=== PATIENT | male | born 1960 | race Caucasian/White ===

== ENCOUNTER 2022-03-15 10:20 | Inpatient (IN) | payer MEDICAID, OTHER ==
[~2022-03-15] VITALS: Ht 180.3 cm; Wt 126.6 kg
[2022-03-15 11:44] LABS: Basophils # (auto) 0.1 10 ^3/uL (0-0.2); Basophils % (auto) 1.2 % (0.0-2.0); Eosinophils # (auto) 0.1 10 ^3/uL (0-0.8); Hematocrit 40.9 % (41.0-53.0); Hemoglobin 13.6 g/dL (13.5-17.5); Lymphocytes % (auto) 32.1 % (10.0-50.0); Mean Corpuscular Hemoglobin 31.8 pg (28.0-32.0); Mean Corpuscular Hgb Conc. 33.3 g/dL (32.0-36.0); Mean Corpuscular Volume 95.6 fL (80.0-100.0); Monocytes # (auto) 0.5 10 ^3/uL (0-1.3); Monocytes % (auto) 7.4 % (0.0-12.0); Neutrophils # (auto) 3.6 10 ^3/uL (1.6-8.6); Neutrophils % (auto) 58.3 % (37.0-80.0); Red Blood Cells 4.28 10^6/uL (4.5-5.90); White Blood Cell 6.2 10^3/uL (4.4-10.8)
[2022-03-15 12:01] LABS: Calcium 8.8 mg/dL (8.5-10.1); Potassium 3.8 mmol/L (3.5-5.1)
[2022-03-15 12:05] LABS: Albumin 3.7 g/dL (3.4-5.0); BUN/Creatinine Ratio 17.6
[2022-03-15 12:08] LABS: Bilirubin, Total 1.2 mg/dL (0.2-1.0)
[2022-03-15] MEDS ORDERED: ACETAMINOPHEN 325 MG TAB PO PRN (14:15)
[2022-03-15] MEDS ORDERED: HYDROcodone-ACET 5/325MG TAB PO PRN (14:15)
[2022-03-15] MEDS ORDERED: NITROGLYCERIN 0.4 MG SL TAB SL PRN (14:15)
[2022-03-15] MEDS ORDERED: ONDANSETRON HCL 4 MG/2 ML VIAL IV PRN (14:15)
[2022-03-15] MEDS ORDERED: MORPHINE SULFATE INJECTION 2 MG/ML SYRG IV PRN ×2 (14:15)
[2022-03-15 16:50] LABS: Urine Bacteria NONE SEEN /hpf (None Seen); Urine Blood Negative /uL (Negative); Urine Specific Gravity 1.012 (1.001-1.035); Urine WBC <1 /hpf (0 - 3)
[2022-03-15] MEDS ORDERED: RIVAROXABAN 20 MG TAB PO SCH (20:30)
[2022-03-15 21:10] VITALS: BP 107/71
[2022-03-15 22:32] VITALS: BP 107/71
[2022-03-15] MEDS ORDERED: LISI40TA11 PO (22:53)
[2022-03-15] MEDS ORDERED: LOVA40TA72 PO (22:53)
[2022-03-15] MEDS ORDERED: ALLO300T2 PO (22:53)
[2022-03-16 05:27] VITALS: BP 94/59
[2022-03-16 08:53] LABS: Basophils # (auto) 0 10 ^3/uL (0-0.2); Basophils % (auto) 0.7 % (0.0-2.0); Eosinophils # (auto) 0.1 10 ^3/uL (0-0.8); Eosinophils % (auto) 1.3 % (0.0-7.0); Hematocrit 42.9 % (41.0-53.0); Hemoglobin 14.6 g/dL (13.5-17.5); Lymphocytes # (auto) 2.1 10 ^3/uL (0.4-5.4); Mean Corpuscular Hemoglobin 32.6 pg (28.0-32.0); Mean Corpuscular Hgb Conc. 34.1 g/dL (32.0-36.0); Mean Corpuscular Volume 95.8 fL (80.0-100.0); Monocytes # (auto) 0.4 10 ^3/uL (0-1.3); Monocytes % (auto) 5.7 % (0.0-12.0); Neutrophils % (auto) 60.3 % (37.0-80.0); Nucleated Red Blood Cells % 0.3 %; Red Blood Cells 4.48 10^6/uL (4.5-5.90); Red Cell Distribution Width 14.4 % (11.8-14.3); White Blood Cell 6.5 10^3/uL (4.4-10.8)
[2022-03-16 09:00] VITALS: BP 94/49
[2022-03-16 09:12] LABS: Albumin 3.8 g/dL (3.4-5.0); Calcium 9.1 mg/dL (8.5-10.1); Potassium 4.6 mmol/L (3.5-5.1)
[2022-03-16 09:17] LABS: Bilirubin, Total 1.2 mg/dL (0.2-1.0); Total Protein 7.5 g/dL (6.4-8.2)
[2022-03-16] MEDS ORDERED: ENOXAPARIN SOD 40 MG/0.4 ML SYRINGE SC SCH (10:00)
[2022-03-16 12:45] VITALS: BP 92/56
[2022-03-16] MEDS ORDERED: RIV20T PO (13:23)
== END 2022-03-16 15:40 | disposition home or self-care (01) | DRG 201 ==
LOC: ER 10:20 → TELE 14:04 → TELE-CENTR 21:15
PROVIDERS: ADMIT Internal Medicine; ATTEND Internal Medicine
DX: I48.0 Paroxysmal atrial fibrillation (principal); E66.01 Morbid (severe) obesity due to excess calories; I10 Essential (primary) hypertension; Z20.822 Contact with and (suspected) exposure to COVID-19; Z68.38 Body mass index [BMI] 38.0-38.9, adult
CPT/HCPCS: 36415; 71045; 80053; 81001; 83880; 84484; 85025; 85379; 93005; 93306; G0378

== ENCOUNTER → 2022-05-17 | Outpatient (CLI) | payer MEDICAID ==
[~2022-05-17] MED LIST: ALLO300T2 PO; LISI40TA11 PO; LOVA40TA72 PO; RIV20T PO
== END | disposition home or self-care (01) ==
LOC: Rad HDHVI 10:01
PROVIDERS: ATTEND Internal Medicine Cardiovascular Disease
DX: I63.9 Cerebral infarction, unspecified (principal)
CPT/HCPCS: 70450

== ENCOUNTER → 2022-06-07 | Outpatient (CLI) | payer MEDICAID ==
[~2022-06-07] VITALS: Ht 180.3 cm; Wt 117.9 kg
[~2022-06-07] MED LIST changes: +ADENOSINE 90 MG/30 ML INJ IV ONE; +ADENOSINE 99 MG in GIVE UN-DILUTED 0 ML IV ONE
== END | disposition home or self-care (01) ==
LOC: Rad HDHVI 06-06 13:37
PROVIDERS: ATTEND Internal Medicine Cardiovascular Disease
DX: I48.91 Unspecified atrial fibrillation (principal); I10 Essential (primary) hypertension; E78.5 Hyperlipidemia, unspecified
CPT/HCPCS: 78452; 93005; 96374; 96375; A9500; J0153

== ENCOUNTER → 2022-09-12 | Outpatient (CLI) | payer MEDICAID ==
[~2022-09-12] MED LIST changes: -ADENOSINE 90 MG/30 ML INJ IV ONE; -ADENOSINE 99 MG in GIVE UN-DILUTED 0 ML IV ONE; +ASPI325T4 PO; +CARB1TAB44 PO; +METO-6 PO; +MULT-1018 PO; +TICA90TA PO
[2022-09-12 11:26] VITALS: BP 95/52
[2022-09-12 11:57] VITALS: BP 104/59
[2022-09-12 16:42] LABS: Basophils # (auto) 0.1 10 ^3/uL (0-0.2); Basophils % (auto) 1.1 % (0.0-2.0); Eosinophils # (auto) 0.1 10 ^3/uL (0-0.8); Eosinophils % (auto) 1.8 % (0.0-7.0); Hematocrit 43.4 % (41.0-53.0); Lymphocytes # (auto) 1.9 10 ^3/uL (0.4-5.4); Lymphocytes % (auto) 35.7 % (10.0-50.0); Mean Corpuscular Hgb Conc. 32.3 g/dL (32.0-36.0); Monocytes # (auto) 0.3 10 ^3/uL (0-1.3); Monocytes % (auto) 6.4 % (0.0-12.0); Neutrophils # (auto) 2.9 10 ^3/uL (1.6-8.6); Nucleated Red Blood Cells % 0.3 %; Red Blood Cells 4.52 10^6/uL (4.5-5.90); Red Cell Distribution Width 14.3 % (11.8-14.3); White Blood Cell 5.2 10^3/uL (4.4-10.8)
[2022-09-12 16:50] LABS: BUN/Creatinine Ratio 13.5; Calcium 9.1 mg/dL (8.5-10.1); Potassium 3.9 mmol/L (3.5-5.1)
[2022-09-12 17:01] LABS: INR 1.25 (0.9-1.15)
[2022-09-15] VITALS (8 sets, daily range): BP systolic 108–129; BP diastolic 70–86
== END | disposition home or self-care (01) ==
LOC: Rad HDHVI 11:10
PROVIDERS: ATTEND Internal Medicine Cardiovascular Disease
DX: Z01.818 Encounter for other preprocedural examination (principal); R94.31 Abnormal electrocardiogram [ECG] [EKG]; I48.0 Paroxysmal atrial fibrillation; R06.02 Shortness of breath
CPT/HCPCS: 36415; 71046; 80048; 85025; 85610; 85730; 93005; G0463

== ENCOUNTER 2022-09-15 07:14 | Day surgery (SDC) | payer MEDICAID ==
[~2022-09-15] VITALS: Ht 180.3 cm; Wt 113.4 kg
[~2022-09-15 07:14] MED LIST changes: -LISI40TA11 PO; -TICA90TA PO
[2022-09-15] MEDS ORDERED: IOHEXOL 350 MG/ML 100ML IJ ONE ×2 (07:23→10:57)
[2022-09-15] MEDS ORDERED: ANGIOMAX 250 MG VIAL IV ONE (10:25)
[2022-09-15] MEDS ORDERED: MIDAZOLAM HCL 2MG/2ML 2ml VIAL (1mg/ml) ONE (10:26)
[2022-09-15] MEDS ORDERED: fentaNYL CITRATE 100 MCG/2 ML VL ONE (10:26)
[2022-09-15] MEDS ORDERED: SODIUM CHL 0.9% 50 ML ONE (10:26)
[2022-09-15] MEDS ORDERED: ATROPINE SULF 1 MG/10ml SYR ONE (10:57)
[2022-09-15] MEDS ORDERED: TICAGRELOR 90 MG TAB ONE ×2 (11:03→11:08)
[2022-09-15] MEDS ORDERED: TICA90TA PO (13:12)
== END 2022-09-15 14:57 | disposition home or self-care (01) ==
LOC: CATH 07:14
PROVIDERS: ATTEND Internal Medicine Cardiovascular Disease
DX: I25.110 Atherosclerotic heart disease of native coronary artery with unstable angina pectoris (principal); I10 Essential (primary) hypertension; I48.91 Unspecified atrial fibrillation; E78.5 Hyperlipidemia, unspecified; E11.40 Type 2 diabetes mellitus with diabetic neuropathy, unspecified; Z79.899 Other long term (current) drug therapy; E11.21 Type 2 diabetes mellitus with diabetic nephropathy; Z79.84 Long term (current) use of oral hypoglycemic drugs; Z20.822 Contact with and (suspected) exposure to COVID-19
CPT/HCPCS: 93458; C1724; C1769; C1874; C1887; C1894; C9602; J0583; J1644; J2250; J3010; J7030; Q9967; U0003; 99152; 99153

== ENCOUNTER → 2022-10-25 | Outpatient (CLI) | payer MEDICAID ==
[~2022-10-25] MED LIST changes: +TICA90TA PO
== END | disposition home or self-care (01) ==
LOC: Rad HDHVI 10:12
PROVIDERS: ATTEND Internal Medicine Cardiovascular Disease
DX: I08.1 Rheumatic disorders of both mitral and tricuspid valves (principal); I10 Essential (primary) hypertension; R06.02 Shortness of breath
CPT/HCPCS: 93306

== ENCOUNTER → 2022-10-27 | Outpatient (CLI) | payer MEDICAID ==
[~2022-10-27] VITALS: Ht 180.3 cm; Wt 113.4 kg
[~2022-10-27] MED LIST changes: +ADENOSINE 90 MG/30 ML INJ IV ONE; +ADENOSINE 95 MG in GIVE UN-DILUTED 0 ML IV ONE
== END | disposition home or self-care (01) ==
LOC: Rad HDHVI 09:31
PROVIDERS: ATTEND Internal Medicine Cardiovascular Disease
DX: I25.10 Atherosclerotic heart disease of native coronary artery without angina pectoris (principal); R06.02 Shortness of breath; I10 Essential (primary) hypertension; E78.5 Hyperlipidemia, unspecified; I48.91 Unspecified atrial fibrillation; I21.4 Non-ST elevation (NSTEMI) myocardial infarction; Z79.899 Other long term (current) drug therapy; Z79.82 Long term (current) use of aspirin
CPT/HCPCS: 78452; 93005; 96374; 96375; A9500; J0153

== ENCOUNTER → 2023-09-04 | Outpatient (CLI) | payer MEDICAID ==
[~2023-09-04] VITALS: Ht 177.8 cm; Wt 108.9 kg
[~2023-09-04] MED LIST changes: +ADENOSINE 91 MG in GIVE UN-DILUTED 0 ML IV ONE; -ADENOSINE 95 MG in GIVE UN-DILUTED 0 ML IV ONE
== END | disposition home or self-care (01) ==
LOC: Rad HDHVI 12:50
PROVIDERS: ATTEND Internal Medicine Cardiovascular Disease
DX: R06.02 Shortness of breath (principal); R07.89 Other chest pain; I25.119 Atherosclerotic heart disease of native coronary artery with unspecified angina pectoris; I10 Essential (primary) hypertension; I48.0 Paroxysmal atrial fibrillation; E78.00 Pure hypercholesterolemia, unspecified
CPT/HCPCS: 78452; 93005; 93306; 96374; 96375; A9500; J0153

== ENCOUNTER → 2023-10-25 | Outpatient (CLI) | payer MEDICAID ==
[~2023-10-25] MED LIST changes: -ADENOSINE 90 MG/30 ML INJ IV ONE; -ADENOSINE 91 MG in GIVE UN-DILUTED 0 ML IV ONE; +CARB25TA77 PO; +CHOL20007 PO; +POM
[2023-10-25 10:04] VITALS: BP 127/67; PULSE 86; RESP 18; O2SAT 95
[2023-10-25 10:20] VITALS: BP 116/77; PULSE 75; RESP 18; O2SAT 95
== END | disposition home or self-care (01) ==
LOC: CHF HDHVI 10:02
PROVIDERS: ATTEND Internal Medicine Cardiovascular Disease
DX: Z01.818 Encounter for other preprocedural examination (principal); R94.31 Abnormal electrocardiogram [ECG] [EKG]; I48.91 Unspecified atrial fibrillation; R07.89 Other chest pain; I25.119 Atherosclerotic heart disease of native coronary artery with unspecified angina pectoris; I10 Essential (primary) hypertension; R06.02 Shortness of breath
CPT/HCPCS: 93005; G0463

== ENCOUNTER 2023-10-26 10:03 | Day surgery (SDC) | payer MEDICAID ==
[2023-10-25 12:01] LABS: Basophils # (auto) 0 10 ^3/uL (0-0.2); Basophils % (auto) 0.8 % (0.0-2.0); Eosinophils # (auto) 0.1 10 ^3/uL (0-0.8); Eosinophils % (auto) 2.4 % (0.0-7.0); Hematocrit 40.4 % (41.0-53.0); Hemoglobin 13.6 g/dL (13.5-17.5); Lymphocytes # (auto) 1.8 10 ^3/uL (0.4-5.4); Lymphocytes % (auto) 30.6 % (10.0-50.0); Mean Corpuscular Hemoglobin 32.2 pg (28.0-32.0); Mean Corpuscular Hgb Conc. 33.7 g/dL (32.0-36.0); Mean Corpuscular Volume 95.4 fL (80.0-100.0); Monocytes # (auto) 0.5 10 ^3/uL (0-1.3); Neutrophils # (auto) 3.4 10 ^3/uL (1.6-8.6); Neutrophils % (auto) 57.2 % (37.0-80.0); Nucleated Red Blood Cells % 0.1 %; Red Blood Cells 4.23 10^6/uL (4.5-5.90); Red Cell Distribution Width 13.7 % (11.8-14.3)
[2023-10-25 12:56] LABS: INR 1.25 (0.9-1.15); Partial Thromboplastin Time 37.2 SEC (24.5-34.5); Prothrombin Time 12.9 sec (9.3-11.8)
[2023-10-25 12:57] LABS: Chloride 106 mmol/L (98-107); Potassium 4.5 mmol/L (3.5-5.1); Sodium 142 mmol/L (136-145)
[2023-10-25 12:58] LABS: Anion Gap 5 (5-15); Carbon Dioxide 31 mmol/L (20-30)
[2023-10-25 12:59] LABS: Calcium 9.8 mg/dL (8.5-10.1)
[2023-10-25 13:04] LABS: BUN/Creatinine Ratio 17.8 (10.0-20.0); Blood Urea Nitrogen 19 mg/dL (9-23); Glucose 79 mg/dL (74-106)
[~2023-10-26] VITALS: Ht 177.8 cm; Wt 111.1 kg
[2023-10-26] MEDS ORDERED: fentaNYL CITRATE 100 MCG/2 ML VL ONE (13:29)
[2023-10-26] MEDS ORDERED: ANGIOMAX 250 MG VIAL IV ONE (13:29)
[2023-10-26] MEDS ORDERED: SODIUM CHL 0.9% 50 ML ONE (13:30)
[2023-10-26] MEDS ORDERED: MIDAZOLAM HCL 2MG/2ML 2ml VIAL (1mg/ml) ONE (13:30)
[2023-10-26] MEDS ORDERED: LIDOCAINE 2%HCL (LOCAL ANESTH.) INJ 20ML MDV ONE (13:30)
[2023-10-26] MEDS ORDERED: TICAGRELOR 90 MG TAB ONE (14:21)
[2023-10-26 14:30] VITALS: BP 130/74; PULSE 92; RESP 12; O2SAT 96
[2023-10-26 14:44] VITALS: BP 135/83; PULSE 80; RESP 12; O2SAT 98
[2023-10-26 14:59] VITALS: BP 122/84; PULSE 69; RESP 14; O2SAT 93
[2023-10-26 15:14] VITALS: BP 129/82; PULSE 80; RESP 14; O2SAT 90
[2023-10-26 15:45] VITALS: BP 105/68; PULSE 75; RESP 15
[2023-10-26 16:15] VITALS: BP 119/64; PULSE 78; RESP 15
== END 2023-10-26 16:38 | disposition home or self-care (01) ==
LOC: CATH 10:03
PROVIDERS: ATTEND Internal Medicine Cardiovascular Disease
DX: I25.10 Atherosclerotic heart disease of native coronary artery without angina pectoris (principal); I48.0 Paroxysmal atrial fibrillation; Z79.01 Long term (current) use of anticoagulants; I10 Essential (primary) hypertension; Z79.899 Other long term (current) drug therapy; E78.5 Hyperlipidemia, unspecified; Z98.890 Other specified postprocedural states
CPT/HCPCS: 36415; 80048; 85025; 85610; 85730; 93454; C1769; C1874; C1887; C1894; C9600; J0583; J1644; J2250; J3010; 99152

== ENCOUNTER 2023-11-01 13:20 | Inpatient (IN) | payer MEDICAID ==
[~2023-11-01] VITALS: Ht 177.8 cm; Wt 112.6 kg
[~2023-11-01 13:20] MED LIST changes: -CARB1TAB44 PO; -TICA90TA PO
[2023-11-01 15:00] VITALS: PULSE 80; RESP 20; O2SAT 94
[2023-11-01 15:26] LABS: Basophils # (auto) 0 10 ^3/uL (0-0.2); Basophils % (auto) 0.6 % (0.0-2.0); Eosinophils # (auto) 0.2 10 ^3/uL (0-0.8); Eosinophils % (auto) 3.2 % (0.0-7.0); Hematocrit 38.7 % (41.0-53.0); Hemoglobin 13.2 g/dL (13.5-17.5); Lymphocytes # (auto) 1.4 10 ^3/uL (0.4-5.4); Lymphocytes % (auto) 21.7 % (10.0-50.0); Mean Corpuscular Hemoglobin 32.6 pg (28.0-32.0); Mean Corpuscular Hgb Conc. 34.1 g/dL (32.0-36.0); Mean Corpuscular Volume 95.5 fL (80.0-100.0); Monocytes # (auto) 0.6 10 ^3/uL (0-1.3); Monocytes % (auto) 9.8 % (0.0-12.0); Neutrophils # (auto) 4.2 10 ^3/uL (1.6-8.6); Neutrophils % (auto) 64.7 % (37.0-80.0); Nucleated Red Blood Cells % 0.1 %; Red Blood Cells 4.05 10^6/uL (4.5-5.90); Red Cell Distribution Width 14.2 % (11.8-14.3); White Blood Cell 6.5 10^3/uL (4.4-10.8)
[2023-11-01 15:44] LABS: INR 1.22 (0.9-1.15); Prothrombin Time 12.6 sec (9.3-11.8)
[2023-11-01 15:56] LABS: Albumin 4.3 g/dL (3.2-4.8); Alkaline Phosphatase 63 U/L (46-116); Anion Gap 5 (5-15); Aspartate Aminotransferase 19 U/L (13-40); BUN/Creatinine Ratio 11.8 (10.0-20.0); Blood Urea Nitrogen 11 mg/dL (9-23); Calcium 9.2 mg/dL (8.7-10.4); Carbon Dioxide 28 mmol/L (20-30); Chloride 106 mmol/L (98-107); Glucose 91 mg/dL (74-106); Potassium 3.7 mmol/L (3.5-5.1); Sodium 139 mmol/L (136-145)
[2023-11-01 15:57] LABS: Alanine Aminotransferase < 9 U/L (7-40); Bilirubin, Total 1.8 mg/dL (0.2-1.0); Total Protein 6.8 g/dL (5.7-8.2)
[2023-11-01] MEDS ORDERED: MORPHINE SULFATE INJ 2 MG/ml SYRG IV PRN ×2 (16:00)
[2023-11-01] MEDS ORDERED: ONDANSETRON HCL 4 MG/2 ML VIAL IV PRN (16:00)
[2023-11-01] MEDS ORDERED: NITROGLYCERIN 0.4 MG SL TAB SL PRN (16:00)
[2023-11-01] MEDS ORDERED: ACETAMINOPHEN 500 MG TAB PO PRN (16:00)
[2023-11-01] MEDS ORDERED: DOCUSATE SOD 100 MG CAP PO PRN (16:00)
[2023-11-01] MEDS ORDERED: HYDROcodone-ACET 5/325MG TAB PO PRN (16:00)
[2023-11-01] MEDS ORDERED: SODIUM CHLORIDE 0.9% 500 ML IV ONE (16:00)
[2023-11-01] MEDS: CARBIDOPA W LEVODOPA 25/100mg TABLET PO SCH ×2 (17:45→23:18)
[2023-11-01 18:42] LABS: Hematocrit 40.3 % (41.0-53.0); Hemoglobin 13.3 g/dL (13.5-17.5)
[2023-11-01 18:49] LABS: Urine Bacteria NONE SEEN /hpf (None Seen); Urine Blood 3+ /uL (Negative); Urine Clarity Clear (Clear); Urine Color Yellow (Yellow); Urine Protein, UAD Negative (Negative); Urine Specific Gravity 1.018 (1.001-1.035); Urine Urobilinogen Normal (Negative); Urine WBC 2 /hpf (0 - 3)
[2023-11-01 19:00] VITALS: PULSE 74; RESP 20; O2SAT 97
[2023-11-01] MEDS ORDERED: ATORVASTATIN 20 MG TAB PO SCH (22:00)
[2023-11-01 22:14] LABS: Hematocrit 32.5 % (41.0-53.0); Hemoglobin 10.8 g/dL (13.5-17.5)
[2023-11-01 23:01] VITALS: BP 127/82; PULSE 70; RESP 16; TEMP 97.5; O2SAT 99
[2023-11-01] MEDS: PANTOPRAZOLE 40 MG/10 ML VIAL INJ IV SCH (23:21)
[2023-11-02 02:23] LABS: Hematocrit 36.1 % (41.0-53.0); Hemoglobin 12.2 g/dL (13.5-17.5)
[2023-11-02] MEDS: SODIUM CHLORIDE 0.9% 1,000 ML IV SCH ×2 (03:15→12:00)
[2023-11-02 04:40] VITALS: BP 124/78; PULSE 71; RESP 20; TEMP 97.9; O2SAT 94
[2023-11-02] MEDS: CARBIDOPA W LEVODOPA 25/100mg TABLET PO SCH ×2 (05:36→12:00)
[2023-11-02 08:00] VITALS: PULSE 79; RESP 18
[2023-11-02 08:53] VITALS: BP 125/75; PULSE 67; RESP 17; TEMP 97.8; O2SAT 95
[2023-11-02] MEDS: PANTOPRAZOLE 40 MG/10 ML VIAL INJ IV SCH (09:01)
[2023-11-02] MEDS ORDERED: PATIENTS OWN MEDICATION (Lovastatin 40 MG) PO SCH (10:00)
[2023-11-02] MEDS ORDERED: ALLOPURINOL 300 MG TAB PO SCH (10:00)
[2023-11-02] MEDS ORDERED: MULTIPLE VITAMIN TAB PO SCH (10:00)
[2023-11-02] MEDS ORDERED: METOPROLOL SUCCINATE XL 50 MG TAB PO SCH (10:00)
[2023-11-02 10:52] LABS: Hematocrit 41.3 % (41.0-53.0); Hemoglobin 13.6 g/dL (13.5-17.5)
[2023-11-02] MEDS ORDERED: TICAGRELOR 90 MG TAB PO ONE (13:15)
[2023-11-02 15:53] VITALS: BP 125/77; PULSE 67; RESP 18; TEMP 97.8; O2SAT 95
== END 2023-11-02 16:30 | disposition home or self-care (01) | DRG 254 ==
LOC: ER 13:20 → TELE 15:58 → TELE-WESTW 22:22
PROVIDERS: ADMIT Nurse Practitioner Acute Care; ATTEND Nurse Practitioner Acute Care
DX: K64.8 Other hemorrhoids (principal); G20.A1 Parkinson's disease without dyskinesia, without mention of fluctuations; E66.9 Obesity, unspecified; G35 Multiple sclerosis; I48.91 Unspecified atrial fibrillation; I10 Essential (primary) hypertension; I25.10 Atherosclerotic heart disease of native coronary artery without angina pectoris; T45.515A Adverse effect of anticoagulants, initial encounter; Z95.5 Presence of coronary angioplasty implant and graft; Y92.89 Other specified places as the place of occurrence of the external cause; Z68.35 Body mass index [BMI] 35.0-35.9, adult
CPT/HCPCS: 36415; 74176; 80053; 81001; 85014; 85018; 85025; 85610; 87081; 99291; C9113; G0378

== ENCOUNTER 2023-11-11 20:08 | Emergency (ER) | payer MEDICAID ==
[~2023-11-11] VITALS: Ht 177.8 cm; Wt 110.0 kg
[~2023-11-11 20:08] MED LIST changes: -RIV20T PO
[2023-11-11 20:28] VITALS: BP 120/77; TEMP 99.8; O2SAT 96
[2023-11-11 21:47] VITALS: PULSE 85; RESP 18
[2023-11-11] MEDS ORDERED: LIDOCAINE 1% HCL (LOCAL ANESTH.) INJ 20ML MDV IJ ONE (22:45)
[2023-11-11] MEDS ORDERED: TETANUS-DIPTH-ACEL PERTUSSIS 0.5ML SYR Tdap IM ONE ×2 (22:45→23:06)
[2023-11-11] MEDS ORDERED: HYDROcodone-ACET 5/325MG TAB PO ONE (23:15)
[2023-11-11] MEDS ORDERED: MUPI2OIN2 EX (23:19)
[2023-11-11] MEDS ORDERED: CEPH500C PO (23:19)
== END 2023-11-12 00:35 | disposition home or self-care (01) ==
LOC: ER 20:08
DX: S01.111A Laceration without foreign body of right eyelid and periocular area, initial encounter (principal); I10 Essential (primary) hypertension; R51.9 Headache, unspecified; I48.91 Unspecified atrial fibrillation; I25.10 Atherosclerotic heart disease of native coronary artery without angina pectoris; W01.198A Fall on same level from slipping, tripping and stumbling with subsequent striking against other object, initial encounter; Y93.89 Activity, other specified; Y92.89 Other specified places as the place of occurrence of the external cause; Y99.8 Other external cause status
CPT/HCPCS: 12013; 70450; 90715; 99284; J2001

== ENCOUNTER → 2023-11-23 | Outpatient (CLI) | payer MEDICAID ==
[~2023-11-23] MED LIST changes: +CEPH500C PO; +MUPI2OIN2 EX
== END | disposition home or self-care (01) ==
LOC: Rad HDHVI 15:02
PROVIDERS: ATTEND Internal Medicine Cardiovascular Disease
DX: I35.1 Nonrheumatic aortic (valve) insufficiency (principal); I10 Essential (primary) hypertension; R07.89 Other chest pain
CPT/HCPCS: 93306